=== PATIENT | male | born 1955 | race Caucasian/White ===

== ENCOUNTER → 2017-09-16 | Outpatient (CLI) | payer OTHER ==
--- NOTE | 2017-09-16 13:17 | CT ---
EXAMINATION TYPE: CT abdomen pelvis wo/w con DATE OF EXAM: 09/16/2017 COMPARISON: NONE HISTORY: Newly diagnosed prostate cancer after symptoms of dysuria and diminished urine stream. CT DLP: 884.7 mGycm, Automated Exposure Control for Dose Reduction was Utilized. CONTRAST: CT scan of the abdomen and pelvis is performed with oral and without and with IV Contrast, patient in jected with 100 mL of Isovue 300. FINDINGS: LUNG BASES: No significant abnormality is appreciated. LIVER/GB: Contracted gallbladder is seen. PANCREAS: No significant abnormality is seen. SPLEEN: No significant abnormality is seen. ADRENALS: No significant abnormality is seen. KIDNEYS: Noncontrast images show no renal calculi. Postcontrast images show symmetric cortical medull yusuf uptake and excretion without evidence of concerning solid or cystic renal mass or hydronephrosis bilaterally. Bladder is satisfactorily distended without suspicious mass or wall thickening. BOWEL: The oral contrast reaches level of the distal left colon. There is no suspicious small or larg e bowel dilatation. Normal contrast-filled appendix is seen from cecum. PROSTATE/SEMINAL VESICLES: Seminal vesicles are prominent in size. Prostate gland is mildly enlarged with central zone calcifications. No suspicious adjacent adenopathy is seen. There is left pelvic phl ebolith axial image 72 LYMPH NODES: No greater than 1cm abdominal or pelvic lymph nodes are appreciated. OSSEOUS STRUCTURES: There is slight dextroconvex scoliosis centered in the mid lumbar spine. There is moderate to severe multilevel spurring and disc space narrowing prominent L2-L3 through L4-L5 levels . No suspicious lytic or sclerotic osseous lesions are present. Some scattered Schmorl nodes are pres ent. OTHER: No significant additional abnormality is seen. IMPRESSION: No suspicious mass or adenopathy is seen to suggest metastatic disease from newly diagno sed prostatic cancer.
--- NOTE | 2017-09-16 15:46 | NM ---
EXAMINATION TYPE: NM bone scan whole body DATE OF EXAM: 09/16/2017 COMPARISON: CT scan dated 09/16/2017 HISTORY: Prostate cancer Delayed whole-body scanning was performed following the injection of 24.9 mCi Tc 99m MDP. Images acq uired 4 hours post injection. FINDINGS: There is a curvature the spine. Increased uptake throughout the lumbar spine with most marked finding s at L5-S1. Mild intensity uptake throughout the thoracic spine. Findings are felt to be most likely degenerative. Abnormal uptake involving the shoulders, knees, ankles and feet noted likely arthritic IMPRESSION: 1. Nonspecific uptake throughout the thoracic and lower lumbar spine is felt to be most typical degen erative change. Findings appear to correspond with CT scan of 09/16/2017
== END ==
LOC: RADNMMAIN 10:40
PROVIDERS: ATTEND Urology
DX: C61 Malignant neoplasm of prostate (principal)
CPT/HCPCS: 74178; 78306; A9503; Q9967

== ENCOUNTER → 2017-10-14 | Outpatient (CLI) | payer OTHER ==
[2017-10-14 14:31] LABS: Basophils % (A) 1 %; Eosinophils # (A) 0.1 k/uL (0-0.7); Eosinophils % (A) 2 %; HCT 42.9 % (39.0-53.0); HGB 13.8 gm/dL (13.0-17.5); Lymphocytes # (A) 1.9 k/uL (1.0-4.8); Lymphocytes % (A) 28 %; MCH 28.8 pg (25.0-35.0); MCHC 32.1 g/dL (31.0-37.0); MCV 89.8 fL (80.0-100.0); Mean Platelet Volume 6.5; Monocytes # (A) 0.4 k/uL (0-1.0); Monocytes % (A) 5 %; Neutrophils # (A) 4.2 k/uL (1.3-7.7); Neutrophils % (A) 62 %; Platelet Count 208 k/uL (150-450); RBC 4.77 m/uL (4.30-5.90); RDW 13.4 % (11.5-15.5); WBC 6.8 k/uL (3.8-10.6)
[2017-10-14 14:53] LABS: Anion Gap 10 mmol/L; Blood Urea Nitrogen 17 mg/dL (9-20); Calcium 9.4 mg/dL (8.4-10.2); Carbon Dioxide 28 mmol/L (22-30); Chloride 104 mmol/L (98-107); Glucose 79 mg/dL (74-99); Potassium 4.1 mmol/L (3.5-5.1); Sodium 142 mmol/L (137-145)
== END | disposition home or self-care (01) ==
LOC: LABPAT 13:47
PROVIDERS: ATTEND Urology
DX: Z01.818 Encounter for other preprocedural examination (principal); Z01.812 Encounter for preprocedural laboratory examination; C61 Malignant neoplasm of prostate; R35.0 Frequency of micturition; R31.29 Other microscopic hematuria; E78.5 Hyperlipidemia, unspecified; R53.83 Other fatigue
CPT/HCPCS: 36415; 80048; 85025; 86850; 86900; 86901; 87086; 93005

== ENCOUNTER 2017-10-21 09:10 | Observation (INO) | payer OTHER ==
[2017-10-14 11:56] VITALS: BMI 26.5
[~2017-10-21 09:10] MED LIST: HEPARIN SODIUM,PORCINE 5,000 UNIT/ML 1 ML VIAL SQ ONE; MORPHINE SULFATE 2 MG/ML SYRINGE IV PRN; ONDANSETRON 4 MG/2 ML VIAL IVP PRN; ceFAZolin IN SWFI 2 GM/20 ML SYRINGE IVP ONE
[2017-10-21] MEDS ORDERED: LIDOCAINE 1% 20 ML VIAL (10MG/ML) FOR IV START INTRADERMA ONE ×2 (09:50)
[2017-10-21] MEDS: LACTATED RINGERS 1,000 ML IV SCH (09:51)
[2017-10-21] MEDS ORDERED: HYDROmorphone (PF) 1 MG/ML ONE (11:37)
[2017-10-21] MEDS ORDERED: ROCURONIUM BROMIDE 10 MG/ML 10 ML VIAL IV ONE (11:37)
[2017-10-21] MEDS ORDERED: PROPOFOL 10 MG/ML 20 ML VIAL IV ONE (11:37)
[2017-10-21] MEDS ORDERED: PHENYLEPHRINE-0.9% NACL SYG 1 MG/10 ML SYRINGE ONE (11:37)
[2017-10-21] MEDS ORDERED: SUCCINYLCHOLINE CHLORIDE 100 MG/5 ML SYR IV ONE (11:37)
[2017-10-21] MEDS ORDERED: NEOSTIGMINE 1 MG/ML 10 ML VIAL ONE (11:37)
[2017-10-21] MEDS ORDERED: GLYCOPYRROLATE 0.2 MG/ML 2 ML VIAL ONE (11:37)
[2017-10-21] MEDS ORDERED: LIDOCAINE 1% INJ 10MG/ML (20 ML MDV) ONE (11:37)
[2017-10-21] MEDS ORDERED: fentaNYL (PF) 50 MCG/ML 2 ML AMP ONE (11:37)
[2017-10-21] MEDS ORDERED: MIDAZOLAM 2 MG/2 ML VIAL ONE (11:37)
[2017-10-21] MEDS ORDERED: ePHEDrine SULFATE/0.9% NACL/PF 50 MG/5 ML SYRINGE IV ONE (11:37)
[2017-10-21] MEDS ORDERED: BUPIVACAINE (PF) 0.5% 30 ML VIAL SQ ONE (12:01)
[2017-10-21] MEDS ORDERED: LACTATED RINGERS 1,000 ML IV ONE (14:21)
--- NOTE | 2017-10-21 15:37 | P.OP ---
Date of Procedure: 10/21/17 Preoperative Diagnosis: Adenocarcinoma of the Prostate, Clinical Stage [id number] Postoperative Diagnosis: Same Procedure(s) Performed: Robotic-assisted laparoscopic prostatectomy (RALP) with bilateral pelvic lymphadenectomy Anesthesia: HEAVENLY Surgeon: Earnest Acevedo Senior Ui Ux Designer #1: Mikayla Spring Estimated Blood Loss (ml): 450 IV fluids (ml): 1,600 Pathology: other (Prostate, seminal vesicles, bilateral pelvic lymph nodes) Condition: stable Disposition: PACU Indications for Procedure: This gentleman returned in fu of a rising psa and LUTS. He was placed on flomax with good results. His PSA level continued to rise and he thereofore underwent prostate biopsies identifying prostate cancer, [place]cca 6-8, in 5/12 biopsies ( [id number]). He had a negative bone scan and CT scan. We had a lengthy discussearion about treatment options, and he has opted to undergo an RALP. It was made clear to him that he is not a candidate for a nerve sparing procedure, and that consequently he will have erectile dysfunction postoperatively. He also understands the possible need for adjuvant therapy. Operative Findings: Mildly enlarged pelvic lymph nodes. Description of Procedure: The patient was taken in the operating room and placed in the dorsal lithotomy position, with his legs supported in Ezio stirrups. He was carefully positioned on a beanbag for stability. The abdomen and external genitalia were prepped and draped sterilely. A Hedrick catheter was inserted. The Veress needle was passed through the anterior abdominal wall immediately cephalad to the umbilicus, and insufflation was performed to a pressure of 20 mm Hg. Once insufflation was performed, the Veress needle was removed and a supraumbilical incision was made, through which a 12 mm camera port was placed. Under camera guidance, 3 8 mm robotic ports were placed, 2 on the left and one on the right. An additional 12 mm port was placed on the right lateral side for use as an workforce development assistant port. A 5 mm port was placed to the right of the camera port for suction. The patient was placed in Trendelenburg position, and docking was then performed to the da Misael system utilizing a 4-arm approach. The abdomen was examined. The sigmoid colon was mobilized out of the pelvis. The peritoneum was incised lateral to the medial umbilical ligaments bilaterally , exposing the pubis. The peritoneum was then incised across the midline, allowing the bladder flap to be taken down. The endopelvic fascia was opened bilaterally, and muscular attachments from the urogenital diaphragm were swept away from the prostate. Bilateral pelvic lymphadenectomies were performed in the standard fashion. The peritoneal incisions were extended in a cephalad direction, and the vas deferens were divided bilaterally. Margins of dissection were the bifurcation of the iliac vessels proximally, the circumflex iliac vein distally, the external iliac artery laterally, and the obturator nerve medially. A combination of sharp and blunt dissection was used. Care was taken to avoid any neurovascular injury, and the use of monopolar electrocautery was avoided immediately adjacent to neurovascular structures. Mildly enlarged lymph nodes were identified on each side. There were no complications. The vesical neck was incised transversely, down to the lumen. The Hedrick catheter was brought out through the anterior vesical neck incision and was used for traction. The posterior aspect of the vesical neck was incised, such that the full-thickness of the vesical neck was divided. The anterior layer of the Denonvilliers fascia was incised, exposing the vas deferens. Each were isolated and divided. Next, each of the seminal vesicles were dissected away from adjacent tissues, and vascular attachments were cauterized and divided. The posterior leaf of Denonvilliers fascia was incised transversely, allowing entry into the plane between the prostate and rectum. With lateral spreading, this plane was developed down to the apex. This exposed the lateral vascular pedicles bilaterally. These were clipped and divided in an antegrade fashion, down to the apex. The remaining apical attachments were swept away from the prostate. The dorsal venous complex was incised. Some very large veins were identified, resulting in more bleeding than is typical. This was particularly true on the right side , and therefore a V lock suture was used in a running fashion to control this bleeding. This allowed the apical dissection to be performed under vision. The remaining periurethral tissue was incised, leaving only the urethra intact. This was transected immediately distal to the prostatic apex using cold scissors. The specimen was placed within a specimen bag. The dorsal venous complex was sutured using a V-Loc suture in a running fashion. A second V-Loc suture was then used to place the Tyler stitch, incorporating the rhabdosphincter and the edge of Denonvilliers fascia. This allowed the bladder to be taken down to the urethra, leaving the vesical neck immediately adjacent to the urethra. The vesicourethral anastomosis was then performed using a V-Loc suture in a running fashion. After completing the anastomosis, an 18-Upper Sorbian Hedrick catheter was placed and approximately 150 mL of 0.9 normal saline were instilled into the bladder. No extravasation of irrigant from the vesicourethral anastomosis was noted. A small amount of oozing was noted from the vascular pedicles, so Surgicel was placed bilaterally. The patient was returned to the supine position. Undocking was performed, and the specimen bag sutures were passed through the camera port. After removing all the ports and allowing all of the CO2 to be released from the peritoneal cavity, the camera port incision was enlarged to allow removal of the surgical specimen. The fascia of this incision was then closed using 0 Vicryl suture in an interrupted [id number] fashion. Each of the skin incisions were then closed using 4-0 Monocryl suture in a subcuticular fashion. Marcaine was injected at each of the incision sites. Dermabond was applied to each incision. The Hedrick catheter was connected to gravity drainage. All sponge and needle counts were correct. The patient tolerated the procedure well was taken to the recovery room in stable condition.
[2017-10-21] MEDS ORDERED: ACETAMINOPHEN TAB 325 MG TAB PO PRN (15:38)
[2017-10-21] MEDS ORDERED: ONDANSETRON 4 MG/2 ML VIAL IVP PRN (15:38)
[2017-10-21] MEDS: HYDROmorphone 0.5 MG/0.5 ML SYRINGE IVP PRN ×2 (16:10→16:24)
[2017-10-21] MEDS: KETOROLAC 30 MG/ML 1 ML VIAL IVP PRN (18:38)
[2017-10-21] MEDS: HEPARIN SODIUM,PORCINE 5,000 UNIT/ML 1 ML VIAL SQ SCH (20:20)
[2017-10-22] MEDS: KETOROLAC 30 MG/ML 1 ML VIAL IVP PRN ×2 (00:20→14:01)
[2017-10-22] MEDS: HYDROmorphone 0.5 MG/0.5 ML SYRINGE IVP PRN ×2 (03:45→09:19)
--- NOTE | 2017-10-22 06:24 | P.DS ---
Providers Date of admission: 10/22/17 04:22 Attending physician: Earnest Acevedo Primary care physician: [facility] Hospital Course: The patient is a 62-year-old gentleman brought in the hospital for a radical prostatectomy. He underwent this surgery 10/21/2016. He had no difficulties. His vital signs are stable. His wound looks good. His urine is clear. He will ambulate. If he ambulates without difficulty and his pain is under control he will be discharged home in care of his family with a regular diet. He will follow-up in the office in 10 days. Pathology report is pending. Condition is good. Patient Condition at Discharge: Good Plan - Discharge Summary Discharge Rx Participant: Yes New Discharge Prescriptions: New Hydrocodone/Acetaminophen [Lowden 5-325] 1 tab PO Q4HR PRN 3 Days #18 tab PRN Reason: Pain Control No Action Tamsulosin HCl [Flomax] 0.4 mg PO BID Discharge Medication List Tamsulosin HCl [Flomax] 0.4 mg PO BID 10/14/17 [History] Hydrocodone/Acetaminophen [Lowden 5-325] 1 tab PO Q4HR PRN 3 Days #18 tab [Rx] Follow up Appointment(s)/Referral(s): Earnest Acevedo MD [STAFF PHYSICIAN] - 10/31/17 Activity/Diet/Wound Care/Special Instructions: Patient discharged home with Hedrick catheter, leg and overnight bag. Please instruct Discharge Disposition: HOME SELF-CARE
[2017-10-22] MEDS: LACTATED RINGERS 1,000 ML IV SCH (09:18)
[2017-10-22] MEDS: HEPARIN SODIUM,PORCINE 5,000 UNIT/ML 1 ML VIAL SQ SCH ×2 (09:23→21:48)
[2017-10-22] MEDS: DEXTROSE 5%-0.45% NACL 1,000 ML IV SCH ×2 (12:15→12:17)
[2017-10-22] MEDS: HYDROcodone/APAP 5-325MG 1 EACH TAB PO PRN ×2 (15:31→19:38)
[2017-10-23] MEDS: HYDROcodone/APAP 5-325MG 1 EACH TAB PO PRN ×3 (00:03→08:37)
[2017-10-23 02:08] VITALS: BP 109/67
[2017-10-23] MEDS: HEPARIN SODIUM,PORCINE 5,000 UNIT/ML 1 ML VIAL SQ SCH (08:40)
[2017-10-23 09:11] VITALS: PULSE 72; RESP 18; TEMP 97.6
== END 2017-10-23 10:41 | disposition home or self-care (01) ==
LOC: OR 09:10 → 3SUR 15:43 → OR 10-22 04:22 → 3SUR 10-22 04:22
PROVIDERS: ADMIT Urology; ATTEND Urology
DX: C61 Malignant neoplasm of prostate (principal); Z79.899 Other long term (current) drug therapy; E78.5 Hyperlipidemia, unspecified; Z82.49 Family history of ischemic heart disease and other diseases of the circulatory system; N40.1 Benign prostatic hyperplasia with lower urinary tract symptoms
CPT/HCPCS: 55866; 38571; 94760; G0378 ×2; J2250; J1644 ×3; J2710; J2405; J2001; J3010; J1885 ×2; J1170 ×3; J2370; J0330; J2704; J0690; 86850; 86900; 86901; 88307; 88309; 88342

== ENCOUNTER → 2018-02-27 | Outpatient (CLI) | payer OTHER | LOC: LABWHC1 10:29 | PROVIDERS: ATTEND Radiology Radiation Oncology | DX: C61 Malignant neoplasm of prostate (principal); Z90.79 Acquired absence of other genital organ(s) | CPT/HCPCS: 36415; 84153 ==